=== PATIENT | female | born 1995 | race Caucasian/White ===

== ENCOUNTER 2016-10-24 21:51 | Emergency (ER) | payer OTHER ==
[~2016-10-24 21:51] MED LIST: NO HOME MEDS; NORCO 5-325 TA1 EACH PO; NORCO 7.5/3251 TAB PO; TAMIFLU75 MG/CAP PO; TRAMADOL HCL50 MG PO; ZOFRAN4 M2 PO
== END 2016-10-24 23:26 ==
LOC: EDMED 21:51
PROC: 0HQFXZZ Repair Right Hand Skin, External Approach (ICD-10-PCS; principal; 2016-10-24)
DX: S61.411A Laceration without foreign body of right hand, initial encounter (principal); J45.909 Unspecified asthma, uncomplicated; W26.0XXA Contact with knife, initial encounter; Y93.89 Activity, other specified; Y92.89 Other specified places as the place of occurrence of the external cause; Y99.0 Civilian activity done for income or pay